=== PATIENT | male | born 1965 | race Two or more races ===

== ENCOUNTER 2019-08-04 00:44 | Inpatient (IN) | payer MEDICAID ==
[2019-08-04] VITALS (7 sets, daily range): BP systolic 142–166; BP diastolic 78–96
[~2019-08-04] VITALS: Ht 167.6 cm; Wt 85.7 kg
[~2019-08-04 00:44] MED LIST: FOLI1TAB16 PO; THIA100T74 PO
[2019-08-04] MEDS ORDERED: KETOROLAC TROMETHAMINE 15 MG/ML VIAL ONE (01:11)
[2019-08-04] MEDS ORDERED: ONDANSETRON HCL/PF 4 MG/2 ML VIAL ONE (01:11)
--- NOTE | 2019-08-04 01:15 | NUR ---
BIBSELF TO ER BED 11. AAOX4. NO RESP DISTRESS NOTED. AMBULATORY. C/O RUQ ABDOMINAL PAIN AND L CEHST PAIN. PT REPORTS PAIN HAS BEEN GOING ON FOR THE PAST WEEK 8/10 SHARP STABBING PAIN. PT ADMIT TO DRINKS BEER W/ TEQUILA LAST DRINK WAS THIS MORNING. PT'S CHEST PAIN HAS BEEN GOING ON FOR THE PAST 2 DAYS NON RADIATING. AWAITING MD FOR EVAL.
[2019-08-04 01:24] LABS: BASOPHILS % (AUTO) 0.7 % (0.0-2.0); EOSINOPHILS % (AUTO) 0.5 % (0.0-6.0); HEMATOCRIT 47 % (39-51); HEMOGLOBIN 16.4 g/dL (13.5-17.5); LYMPHOCYTES # (AUTO) 2.4 /CMM (0.8-4.8); LYMPHOCYTES % (AUTO) 40.3 % (20.0-44.0); MEAN CORPUSCULAR HGB CONC 35 g/dl (31.0-36.0); MEAN CORPUSCULAR VOLUME 91 fL (80-96); MONOCYTES # (AUTO) 0.3 /CMM (0.1-1.30); MONOCYTES % (AUTO) 5.9 % (2.0-12.0); NEUTROPHILS # (AUTO) 3.1 /CMM (1.8-8.9); NEUTROPHILS % (AUTO) 52.6 % (43.0-81.0); PLATELET COUNT (AUTO) 142 /CMM (150-450); RED BLOOD CELL COUNT(AUTO) 5.14 MIL/uL (4.5-6.0); WHITE BLOOD COUNT (AUTO) 5.9 K/uL (4.3-11.0)
[2019-08-04] MEDS ORDERED: ONDANSETRON HCL/PF 4 MG/2 ML VIAL IVP ONE (01:30)
[2019-08-04] MEDS ORDERED: KETOROLAC TROMETHAMINE INJ 30 MG/ML VIAL IV ONE (01:30)
[2019-08-04] MEDS ORDERED: IV NS 0.9% 1,000 ML BAG IV ONE (01:30)
[2019-08-04 01:31] LABS: CALCIUM, SERUM 8.1 mg/dL (8.5-10.1); CREATININE 0.9 mg/dL (0.6-1.3); POTASSIUM 3.2 mmol/L (3.5-5.1)
[2019-08-04 01:37] LABS: ALBUMIN 3.7 g/dL (3.4-5.0); BILIRUBIN,DIRECT 0.4 mg/dL (0.0-0.2); BILIRUBIN,TOTAL 1.6 mg/dL (0.2-1.0)
--- NOTE | 2019-08-04 02:59 | NUR ---
BED ASSIGNMENT 315-2 TELE
[2019-08-04] MEDS ORDERED: ACETAMINOPHEN 325 MG TABLET PO PRN (03:00)
[2019-08-04] MEDS ORDERED: IV NS 0.9% 1,000 ML IV SCH (03:00)
[2019-08-04] MEDS ORDERED: Z GUARD REMEDY 2 OZ OINT TP PRN (03:00)
[2019-08-04] MEDS ORDERED: MAGNESIUM HYDROXIDE 30 ML UDC PO PRN (03:00)
[2019-08-04] MEDS ORDERED: MAG HYDROX/AL HYDROX/SIMETH 30 ML UDC PO PRN (03:00)
[2019-08-04] MEDS ORDERED: PHARMACY ADD 1 AMP MVI TO IVF DAILY ONE BAG XX PRN (03:00)
--- NOTE | 2019-08-04 03:19 | NUR ---
report given to BELLO ESTEVEZ for MAXIMO.
--- NOTE | 2019-08-04 03:45 | NUR ---
MS ENVIRONMENTAL PROFESSIONAL NOTES RECEIVED PATIENT FROM ER VIA RNEY ACCOMPANIED BY ER STAFFS. ALERT AND ORIENTED X 3, NAURUAN SPEAKING. AMBULATORY; VERBALLY RESPONSIVE AND ABLE TO FOLLOW DIRECTIONS. BREATHING REGULAR AND UNLABORED ON ROOM AIR. LEFT AC G20 INTACT AND PATENT, FLUSHING WELL WITH NO BLEEDING OR S/S OF INFILTRATION/INFECTION SEEN. BODY ASSESSMENT DONE, NOTED WITH BILATERAL FEET DRY SKIN AND LEFT UPPER CHEST SCAR. PHOTO TAKEN, ATTACHED TO CHART. VITAL SIGNS TAKEN AND RECORDED. BELONGINGS CHECKED BY HOSE HANDLER AND ACCOUNTED BY PATIENT. STARTED ON IV NS AT 125CC/HR, TOLERATING WELL. NO COMPLAINTS OF PAIN/DISCOMFORT REPORTED OF THE TIME. CALL LIGHT IN REACH. BED LOW AND LOCKED ON SEMI FOWLERS POSITION. WILL CONTINUE TO MONITOR.
[2019-08-04] MEDS ORDERED: Folic acid 1 MG/0.2 ML VIAL ONE (05:36)
[2019-08-04] MEDS ORDERED: Thiamine 100 MG/ML VIAL ONE (05:37)
[2019-08-04] MEDS: Thiamine 100 MG in IV D5W 50 ML IV SCH (05:42)
--- NOTE | 2019-08-04 05:45 | NUR ---
MS RN NOTES IV DOSE OF THIAMINE 100MG AND FOLIC ACID 1MG TAKEN ON THE LESLIE OMNICELL BY NURSE STREET SUPERINTENDENT.
[2019-08-04] MEDS: Folic acid 1 MG in IV D5W 50 ML IV SCH (06:16)
--- NOTE | 2019-08-04 06:30 | NUR ---
MS RN CLOSING NOTES PATIENT IN BED ALERT AND ORIENTED X 3, SAO TOMEAN SPEAKING. AMBULATORY; VERBALLY RESPONSIVE AND ABLE TO FOLLOW DIRECTIONS. BREATHING REGULAR AND UNLABORED ON ROOM AIR. LEFT AC G20 INTACT AND PATENT, FLUSHING WELL WITH NO BLEEDING OR S/S OF INFILTRATION/INFECTION SEEN. NO COMPLAINTS OF PAIN/DISCOMFORT REPORTED OF THE TIME. MAINTAINED ON NOTHING BY MOUTH. CALL LIGHT IN REACH. BED LOW AND LOCKED ON SEMI FOWLERS POSITION. WILL ENDORSE TO MORNING SHIFT FOR MAXIMO.
[2019-08-04 07:34] LABS: PHOSPHORUS 3.6 mg/dL (2.5-4.9)
[2019-08-04] MEDS: ONDANSETRON HCL/PF 4 MG/2 ML VIAL IVP PRN (07:42)
--- NOTE | 2019-08-04 07:43 | NUR ---
M/S RN OPENING NOTES PATIENT RECEIVED RESTING IN BED, ALERT AND ORIENTED x3. MAORI SPEAKING. ABLE TO FOLLOW COMMANDS. NO SIGNS OF DISTRESS OR NO CURRENT COMPLAINTS OF PAIN. CURRENTLY ON ROOM AIR. PATIENT REMAINS ON NPO. IV LOCATED ON LEFT AC G20 RUNNING NS PATENT AND INTACT. SAFETY PRECAUTIONS ARE IN PLACE WITH BED IN LOWEST POSITION, BREAKS ON, AND CALL LIGHT WITHIN REACH. WILL CONTINUE TO MONITOR.
[2019-08-04] MEDS ORDERED: MVI ADULT 10ML VIAL = 1AMP 10 ML in IV NS 0.9% 1,000 ML IV PRN (08:00)
[2019-08-04] MEDS: CYANOCOBALAMIN 100 MCG TABLET PO SCH (08:40)
[2019-08-04] MEDS: PANTOPRAZOLE 40 MG TABLET.DR PO SCH ×2 (10:14→20:05)
[2019-08-04] MEDS: CHLORDIAZEPOXIDE HCL 10 MG CAPSULE PO SCH ×3 (10:15→17:20)
[2019-08-04] MEDS: LORAZEPAM INJ 2 MG/ML VIAL IV PRN ×2 (11:25→16:12)
[2019-08-04] MEDS ORDERED: POTASSIUM CHLORIDE 20 MEQ POWDER PACKET PO SCH (11:30)
--- NOTE | 2019-08-04 13:17 | NUR ---
Social service consult requested by Dr. Toussaint for alcohol abuse. Pt. is a 54 year old male who was admitted to [facility] for Pancreatitis. SW met with the pt. bedside. Pt. is South [place] speaking. MARLENE Steven assisted with translation. Pt. [address] [facility] [place] Pt's emergency contact is his daughter Cinthia Garner . Pt. stated he was binge drinking for the past 2 weeks. Pt's drink of choice is beer. Pt. did attend the [facility] alcohol rehab program in the past. Pt. declined resources and referrals to alcohol treatment programs at this time. Pt. stated, this is a wake up call for him and he is going to stop drinking after this episode. Pt denies drugs and cigarettes use. No other social service needs are requested at this time. SW is available, if needed.
[2019-08-04] MEDS: IV D5/ 0.9% NACL 1,000 ML IV PRN (16:23)
--- NOTE | 2019-08-04 17:39 | NUR ---
M/S RN CLOSING NOTES PATIENT CURRENTLY RESTING IN BED WATCHING TV, A/O x3. MOSTLY PAPUA NEW GUINEAN SPEAKING, BUT STILL ABLE TO LET NEEDS BE KNOWN. NO SIGNS OF ACUTE DISTRESS AND NO CURRENT COMPLAINTS OF PAIN. PATIENT IS AMBULATORY. IV LOCATED ON L AC #20 RUNNING D5 NS @ 125 ML/ HR. SAFETY PRECAUTIONS IN PLACE WITH BED IN LOWEST POSITION, BREAKS ON, AND CALL LIGHT WITHIN REACH. WILL ENDORSE TO ONCOMING LIP CUTTER ABOUT MAXIMO.
--- NOTE | 2019-08-04 18:12 | NUR ---
M/S DR. VEGA VISIT SEEN BY DR. VEGA PER MD. PLAN FOR BONE MARROW BIOPSY AFTER EGD. CONSENT SIGNED AND PLACED IN MEDICAL RECORDS.
--- NOTE | 2019-08-04 19:24 | NUR ---
RN OPENING NOTES RECEIVED PATIENT IN BED, AWAKE. A/O X 3. PATIENT IS TAMAZIGHT SPEAKING, ABLE TO EXPRESS NEEDS. NO SIGNS OF RESPIRATORY DISTRESS. RESPIRATIONS EVEN AND UNLABORED WITH EQUAL RISE AND FALL OF CHEST. IV SITE INTACT AND PATENT, IVF IN PLACE ORDERED, NO INFILTRATION/INFECTION NOTED. DENIES PAIN AT THIS TIME. SAFETY PRECAUTIONS IMPLEMENTED; CALL LIGHT WITHIN REACH, BED LOWEST POSITION, BED LOCKED, BILATERAL UPPER SIDE RAILS UP. WILL CONTINUE TO MONITOR.
[2019-08-04] MEDS: MORPHINE SULFATE INJ 2 MG/ML DISP.SYRIN IV PRN (20:16)
--- NOTE | 2019-08-04 22:30 | NUR ---
Met with patient, states he lives at home with his and family. He is ambulatory and independent with adl's at baseline. Patient states that recently, his walking has been unsteady and wabbly. Admits to having hx of alcohol abuse. 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 Will refer to social media executive for substance abuse treatment resources. Current dc plan is to return home, family will provide ride. Addendum: 08/04/19 at 2230 by JAROCHO LINARES RN Amended: Links added.
[2019-08-05 00:21] VITALS: BP 144/95
[2019-08-05] MEDS: MORPHINE SULFATE INJ 2 MG/ML DISP.SYRIN IV PRN ×3 (00:22→15:10)
[2019-08-05] MEDS: Thiamine 100 MG in IV D5W 50 ML IV SCH (04:00)
[2019-08-05] MEDS: IV D5/ 0.9% NACL 1,000 ML IV PRN ×2 (04:00→17:21)
[2019-08-05] MEDS: Folic acid 1 MG in IV D5W 50 ML IV SCH (05:00)
[2019-08-05 05:05] VITALS: BP 145/92
[2019-08-05] MEDS: LORAZEPAM INJ 2 MG/ML VIAL IV PRN ×2 (05:06→20:23)
[2019-08-05] MEDS: ONDANSETRON HCL/PF 4 MG/2 ML VIAL IVP PRN ×2 (05:31→17:31)
--- NOTE | 2019-08-05 06:34 | NUR ---
RN CLOSING NOTES PATIENT ASLEEP, RESTING IN BED, EASILY AROUSABLE. NO SIGNS OF RESPIRATORY DISTRESS. RESPIRATIONS EVEN AND UNLABORED WITH EQUAL RISE AND FALL OF CHEST. IV SITE REMAINS INTACT AND PATENT, IVF IN PLACE ORDERED, NO INFILTRATION/INFECTION NOTED. IVF DELAYED DUE TO PATIENT GOING TO THE RESTROOM WITH UNHOOKED IV, AND PATIENT ALSO BENDING ARM THUS STOPPING IVF AT TIMES. NO SIGNS OF FACIAL GRIMACING INDICATING PAIN/DISCOMFORT AT THIS TIME. SAFETY PRECAUTIONS IMPLEMENTED; CALL LIGHT WITHIN REACH, BED LOWEST POSITION, BED LOCKED, BILATERAL UPPER SIDE RAILS UP. WILL CONTINUE TO MONITOR AND THEN WILL ENDORSE TO DAYSHIFT NURSE FOR CONTINUITY OF CARE.
[2019-08-05 07:12] LABS: BASOPHILS % (AUTO) 0.5 % (0.0-2.0); EOSINOPHILS % (AUTO) 1.3 % (0.0-6.0); HEMATOCRIT 42 % (39-51); HEMOGLOBIN 14.8 g/dL (13.5-17.5); LYMPHOCYTES # (AUTO) 1.1 /CMM (0.8-4.8); LYMPHOCYTES % (AUTO) 24.4 % (20.0-44.0); MEAN CORPUSCULAR HGB CONC 35 g/dl (31.0-36.0); MEAN CORPUSCULAR VOLUME 92 fL (80-96); MONOCYTES # (AUTO) 0.3 /CMM (0.1-1.30); NEUTROPHILS # (AUTO) 3.2 /CMM (1.8-8.9); NEUTROPHILS % (AUTO) 67.8 % (43.0-81.0); PLATELET COUNT (AUTO) 71 /CMM (150-450); WHITE BLOOD COUNT (AUTO) 4.7 K/uL (4.3-11.0)
--- NOTE | 2019-08-05 07:15 | NUR ---
MS RN OPENING NOTES RECEIVED PT IN BED, ASLEEP. EASILY AROUSED. A/O X3-4. PALESTINIAN SPEAKING BUT CAN UNDERSTAND BELARUSIAN. PT TOLERATING RA, WITH NO ACUTE RESPIRATORY DISTRESS NOTED. PT DENIES ANY PAIN OR DISCOMFORT AT THIS TIME. PT DENIES ANY CONCERNS OR QUESTIONS WELL AT THIS MOMENT. IVF D5 NS @ A25ML/HR TO LACG20, INTACT AND FLUID INFUSING WELL. PT KEPT COMFORTABLE. CALL LIGHT KEPT WITHIN REACH. PT'S BED IN LOWEST, LOCKED POSITION WITH SR X3. WILL CONTINUE PLAN OF CARE.
[2019-08-05 07:43] LABS: CALCIUM, SERUM 7.8 mg/dL (8.5-10.1); CREATININE 0.9 mg/dL (0.6-1.3); POTASSIUM 3.4 mmol/L (3.5-5.1)
[2019-08-05 07:47] LABS: EOSINOPHILS % (MANUAL) 2 % (0-4); LYMPHOCYTES % (MANUAL) 31 % (16-48); MONOCYTES % (MANUAL) 6 % (0-11.0); NEUTROPHILS % (MANUAL) 61 (42-76)
[2019-08-05 08:00] VITALS: BP 150/97
[2019-08-05] MEDS: CYANOCOBALAMIN 100 MCG TABLET PO SCH (08:29)
[2019-08-05] MEDS: CHLORDIAZEPOXIDE HCL 10 MG CAPSULE PO SCH (08:29)
[2019-08-05] MEDS: PANTOPRAZOLE 40 MG TABLET.DR PO SCH ×2 (08:29→20:13)
[2019-08-05] MEDS ORDERED: POTASSIUM CHLORIDE 20 MEQ POWDER PACKET PO SCH (11:30)
[2019-08-05] MEDS: CHLORDIAZEPOXIDE HCL 25 MG CAPSULE PO SCH ×2 (12:54→16:30)
--- NOTE | 2019-08-05 13:47 | NUR ---
MS RN NOTES RECEIVED ORDER OF HEPARIN, CLARIFIED WITH MD/PV DUE TO LOW PLATELTS. MD AWARE HOLD DOSE IF <100. PHARMACIST/CLAUDIA MADE AWARE WELL.
[2019-08-05 16:00] VITALS: BP 141/94
--- NOTE | 2019-08-05 17:20 | NUR ---
MS RN NOTES PT COMPLAINED OF NAUSEA AND DISCOMFORT ON THE TUMMY. REQUESTED ZOFRAN. IV PRN ZOFRAN GIVEN ORDERED. PT HAS TOLERABLE PAIN AT THISMOMENT AND REFUSED TO HAVE ANY ADDITIONAL PAIN MEDICINE AT THIS TIME.
--- NOTE | 2019-08-05 18:36 | NUR ---
MS RN OPENING NOTES PT IN BED, INTERMITTENTLY DOZING OFF. EASILY AROUSED. A/O X3-4. ALBANIAN SPEAKING BUT CAN UNDERSTAND MALTESE. PT TOLERATING RA, WITH NO ACUTE RESPIRATORY DISTRESS NOTED. PT DENIES ANY PAIN OR DISCOMFORT AT THIS TIME. PT DENIES ANY CONCERNS OR QUESTIONS WELL AT THIS MOMENT. IVF D5 NS @ A25ML/HR TO LACG20, INTACT AND FLUID INFUSING WELL. PT KEPT COMFORTABLE. CALL LIGHT KEPT WITHIN REACH. PT'S BED IN LOWEST, LOCKED POSITION WITH SR X3. WILL ENDORSE TO INCOMING NIGHT NURSE FOR MAXIMO.
--- NOTE | 2019-08-05 19:25 | NUR ---
MS RN RECEIVE PT IN BED A/O X 3 AWAKE, STABLE AND NOT IN DISTRESS, NO C/O OF PAIN. SAFETY MEASURES AT ALL TIMES WILL CONTINUE TO MONITOR
[2019-08-05 20:00] VITALS: BP 143/85
[2019-08-05] MEDS: ZOLPIDEM TARTRATE 5 MG TABLET PO PRN (20:14)
[2019-08-05 20:24] VITALS: BP 143/85
[2019-08-05] MEDS ORDERED: HEPARIN SODIUM, PORCINE 5000 UNITS/1 ML VIAL SQ SCH (21:00)
--- NOTE | 2019-08-05 21:23 | NUR ---
MS RN PT CALM AT THIS TIME NO HAND TREMORS, WILL CONTINUE TO MONITOR
[2019-08-06] MEDS: IV D5/ 0.9% NACL 1,000 ML IV PRN ×2 (02:38→16:49)
[2019-08-06] MEDS: MORPHINE SULFATE INJ 2 MG/ML DISP.SYRIN IV PRN ×4 (02:41→22:15)
--- NOTE | 2019-08-06 06:13 | NUR ---
MS RN PT ASLEEP AND EASILY AWAKEN, TOLERATING R.A 98% 02 SAT. MONITORED FOR PAIN, NO C/O OF PAIN AT THIS TIME. NEEDS ATTENDED AND ANTICIPATED. KEPT CLEAN, DRY AND COMFORTABLE AT ALL TIMES. RESPIRATIONS EVEN AND UNLABORED. SAFETY MEASURES AT ALL TIMES. WILL ENDORSE NEXT SHIFT POC.
[2019-08-06 07:04] LABS: BASOPHILS % (AUTO) 0.4 % (0.0-2.0); EOSINOPHILS % (AUTO) 2.6 % (0.0-6.0); HEMATOCRIT 42 % (39-51); HEMOGLOBIN 14.7 g/dL (13.5-17.5); LYMPHOCYTES # (AUTO) 1.2 /CMM (0.8-4.8); LYMPHOCYTES % (AUTO) 27.2 % (20.0-44.0); MEAN CORPUSCULAR HGB CONC 35 g/dl (31.0-36.0); MEAN CORPUSCULAR VOLUME 92 fL (80-96); MONOCYTES # (AUTO) 0.2 /CMM (0.1-1.30); MONOCYTES % (AUTO) 4.3 % (2.0-12.0); NEUTROPHILS % (AUTO) 65.5 % (43.0-81.0); PLATELET COUNT (AUTO) 74 /CMM (150-450); RED BLOOD CELL COUNT(AUTO) 4.59 MIL/uL (4.5-6.0); WHITE BLOOD COUNT (AUTO) 4.6 K/uL (4.3-11.0)
--- NOTE | 2019-08-06 07:19 | NUR ---
MS RN NOTES RECEIVED PT IN BED, ASLEEP. EASILY AROUSED. A/O X3-4. BENGALI SPEAKING BUT CAN UNDERSTAND EMIRATI. PT TOLERATING RA, WITH NO ACUTE RESPIRATORY DISTRESS NOTED. PT DENIES ANY PAIN OR DISCOMFORT AT THIS TIME. PT DENIES ANY CONCERNS OR QUESTIONS WELL AT THIS MOMENT. IVF D5 NS @ 125ML/HR TO LACG20, INTACT AND FLUID INFUSING WELL. PT KEPT COMFORTABLE. CALL LIGHT KEPT WITHIN REACH. PT'S BED IN LOWEST, LOCKED POSITION WITH SR X3. WILL CONTINUE PLAN OF CARE.
[2019-08-06 07:29] LABS: CALCIUM, SERUM 8.1 mg/dL (8.5-10.1); POTASSIUM 3.2 mmol/L (3.5-5.1)
[2019-08-06 08:00] VITALS: BP 160/98
[2019-08-06] MEDS: PANTOPRAZOLE 40 MG TABLET.DR PO SCH ×2 (08:29→22:09)
[2019-08-06] MEDS: CYANOCOBALAMIN 100 MCG TABLET PO SCH (08:29)
[2019-08-06] MEDS: THIAMINE HCL 100 MG TABLET PO SCH (08:30)
[2019-08-06] MEDS: FOLIC ACID 1 MG TABLET PO SCH (08:30)
[2019-08-06] MEDS: CHLORDIAZEPOXIDE HCL 25 MG CAPSULE PO SCH ×3 (08:30→16:42)
[2019-08-06 08:57] LABS: EOSINOPHILS % (MANUAL) 2 % (0-4); LYMPHOCYTES % (MANUAL) 32 % (16-48); MONOCYTES % (MANUAL) 3 % (0-11.0); NEUTROPHILS % (MANUAL) 63 (42-76)
[2019-08-06] MEDS ORDERED: POTASSIUM CHLORIDE 20 MEQ TAB.PRT.SR PO ONE (11:30)
[2019-08-06 16:00] VITALS: BP 135/75
--- NOTE | 2019-08-06 18:30 | NUR ---
MS RN CLOSING NOTES PT IN BED, INTERMITTENTLY DOZING OFF. EASILY AROUSED. A/O X3-4. SERBIAN SPEAKING BUT CAN UNDERSTAND DIVEHI. PT TOLERATING RA, WITH NO ACUTE RESPIRATORY DISTRESS NOTED. PT DENIES ANY PAIN OR DISCOMFORT AT THIS TIME. PT DENIES ANY CONCERNS OR QUESTIONS WELL AT THIS MOMENT. IVF D5 NS @ 125ML/HR TO LACG20, INTACT AND FLUID INFUSING WELL. PT KEPT COMFORTABLE. ALL NEEDS AND CARE ATTENDED AND PROVIDED. CALL LIGHT KEPT WITHIN REACH. PT'S BED IN LOWEST, LOCKED POSITION WITH SR X3. WILL ENDORSE TO INCOMING NIGHT NURSE FOR MAXIMO.
[2019-08-06 20:00] VITALS: BP 154/84
--- NOTE | 2019-08-06 20:12 | NUR ---
MS/RN RECEIVE PATIENT AWAKE, ALERT, ORIENTED, COMFORTABLE, NO DISTRESS NOTED, CALL LIGHT IN REACH. WILL MONITOR.
[2019-08-06] MEDS: ONDANSETRON HCL/PF 4 MG/2 ML VIAL IVP PRN (22:14)
--- NOTE | 2019-08-06 22:50 | NUR ---
MS RN OPENING NOTE RECEIVED A TRANSFER OF CARE FROM MILES ESTEVEZ. PATIENT IN BED. A/O X4. TOLERATING ROOM AIR. RESPIRATIONS ARE EVEN AND UNLABORED. NO S/S SOB NOTED. DENIES PAIN AT THIS TIME. IN NO APPARENT DISTRESS. IV ACCESS IN LAC #20, OCCLUDED, WILL INSERT NEW IV LINE. REASSESSED MORPHINE AND ZOFRAN. PATIENT STATED NO PAIN AND NO NAUSEA OR VOMITING. BED IS LOW AND LOCKED, HOB IN HIGH FOWLERS, SIDE RAILS UP X2. CALL LIGHT WITHIN REACH. WILL CONTINUE TO MONITOR.
--- NOTE | 2019-08-06 22:57 | NUR ---
MS/RN NO CHANGE IN CONDITION, ENDORSED TO NEXT RN FOR CONTINUITY OF CARE.
--- NOTE | 2019-08-06 23:50 | NUR ---
MS RN NOTE INSERT IV RAC #20 RUNNING D5NS@125ML/HR.
[2019-08-07] MEDS: ZOLPIDEM TARTRATE 5 MG TABLET PO PRN (00:14)
[2019-08-07] MEDS: HYDROCODONE/APAP 5/325MG 1 EACH TABLET PO PRN ×3 (00:15→21:50)
--- NOTE | 2019-08-07 00:15 | NUR ---
MS RN NOTE ADMINISTERED PRN AMBIEN 5MG PER PATIENT REQUEST FOR SLEEP. ALSO ADMINISTERED PRN NORCO 5/325 FOR PAIN 9/10 FOR BACK PAIN. WILL CONTINUE TO MONITOR.
[2019-08-07] MEDS: IV D5/ 0.9% NACL 1,000 ML IV PRN ×3 (02:03→21:51)
--- NOTE | 2019-08-07 06:24 | NUR ---
MS RN CLOSING NOTE PATIENT IN BED. A/O X4. REMAINS TOLERATING ROOM AIR. RESPIRATIONS ARE EVEN AND UNLABORED. NO SOB NOTED. MANAGED PAIN WITH MORPHINE AND NORCO. NO DISTRESS NOTED. IV ACCESS IN RAC #20 RUNNING D5NS@125ML/HR. BED REMAINS LOW AND LOCKED, HOB REMAINS IN HIGH FOWLERS, SIDE RAILS UP X2. CALL LIGHT WITHIN REACH. WILL ENDORSE TO NEXT SHIFT.
[2019-08-07 07:20] LABS: BASOPHILS % (AUTO) 0.3 % (0.0-2.0); EOSINOPHILS % (AUTO) 2.7 % (0.0-6.0); HEMATOCRIT 42 % (39-51); HEMOGLOBIN 14.3 g/dL (13.5-17.5); LYMPHOCYTES # (AUTO) 1.2 /CMM (0.8-4.8); LYMPHOCYTES % (AUTO) 29.1 % (20.0-44.0); MEAN CORPUSCULAR HGB CONC 34 g/dl (31.0-36.0); MEAN CORPUSCULAR VOLUME 94 fL (80-96); MONOCYTES # (AUTO) 0.2 /CMM (0.1-1.30); MONOCYTES % (AUTO) 5.9 % (2.0-12.0); NEUTROPHILS # (AUTO) 2.6 /CMM (1.8-8.9); PLATELET COUNT (AUTO) 81 /CMM (150-450); RED BLOOD CELL COUNT(AUTO) 4.46 MIL/uL (4.5-6.0); WHITE BLOOD COUNT (AUTO) 4.1 K/uL (4.3-11.0)
--- NOTE | 2019-08-07 07:30 | NUR ---
RN MS NOTES PT AWAKE, ALERT AND ORIENTED, NO COMPLAINT OF PAIN AT THIS TIME, RESPIRATIONS NORMAL, CALL LIGHT WITHIN REACH, IV FLUIDS INFUSING WELL, TOLERATING CURRENT DIET, ABLE TO AMBULATE TO THE BATHROOM WITH STEADY GAIT, NEEDS ATTENDED.
[2019-08-07 07:32] LABS: CALCIUM, SERUM 8.2 mg/dL (8.5-10.1); POTASSIUM 3.7 mmol/L (3.5-5.1)
[2019-08-07] MEDS: CHLORDIAZEPOXIDE HCL 25 MG CAPSULE PO SCH ×3 (08:05→16:35)
[2019-08-07] MEDS: CYANOCOBALAMIN 100 MCG TABLET PO SCH (08:05)
[2019-08-07] MEDS: FOLIC ACID 1 MG TABLET PO SCH (08:05)
[2019-08-07] MEDS: THIAMINE HCL 100 MG TABLET PO SCH (08:05)
[2019-08-07] MEDS: PANTOPRAZOLE 40 MG TABLET.DR PO SCH ×2 (08:05→21:41)
[2019-08-07] MEDS: METFORMIN XR 500 MG TAB.SR.24H PO SCH (08:05)
[2019-08-07 08:11] VITALS: BP 134/93
[2019-08-07 08:31] LABS: BAND % (MANUAL) 1 % (0.0-5.0); EOSINOPHILS % (MANUAL) 1 % (0-4); LYMPHOCYTES % (MANUAL) 31 % (16-48); MONOCYTES % (MANUAL) 4 % (0-11.0); NEUTROPHILS % (MANUAL) 63 (42-76)
[2019-08-07] MEDS: MORPHINE SULFATE INJ 2 MG/ML DISP.SYRIN IV PRN (09:35)
--- NOTE | 2019-08-07 12:03 | NUR ---
RN MS NOTES PT IN BED, EATING LUNCH, NO COMPLAINT AT THIS TIME, SEEN BY DR. DIAZ, PLAN OF CARE DISCUSSED WITH PT, VERBALIZED UNDERSTANDING.
[2019-08-07 16:10] VITALS: BP 133/74
--- NOTE | 2019-08-07 18:17 | NUR ---
RN MS NOTES PT IN BED, RESTING, PM MEDS GIVEN ORDERED, TOLERATES REGULAR DIET, CALL LIGHT WITHIN REACH, IV FLUIDS INFUSING WELL, ALL NEEDS ATTENDED.
--- NOTE | 2019-08-07 19:25 | NUR ---
MS RN PM OPENING NOTE BEDSIDE REPORT RECIEVED FROM MICH ESTEVEZ. PATIENT IN BED. A/O X4. TOLERATING ROOM AIR. RESPIRATIONS ARE EVEN AND UNLABORED. IN NO APPARENT DISTRESS. IV ACCESS IN RAC #20 RUNNING D5NS@125ML/HR. BED LOW AND LOCKED, HOB IN HIGH FOWLERS, SIDE RAILS UP X2. CALL LIGHT WITHIN REACH. REVIEWED POC TO CONTINUE HYDRATION MANAGE PAIN IT ARISES AND TO MONITOR FOR S/S OF ETOH WITHDRAWL. PT HAS NOT VISIBLE TREMORS OR VISIBLE PERSPERIATION. SPEAKING NORMALLY. PT VERBALIZED UNDERSTANDING BED DOWN LOCKED CALL LIGHT IN REACH. VERBALZIED UNDERSTANDING TO CALL FOR ASSISTANCE NEEDED.
[2019-08-07 20:00] VITALS: BP 139/81
[2019-08-08] MEDS: MORPHINE SULFATE INJ 2 MG/ML DISP.SYRIN IV PRN ×2 (00:29→04:49)
[2019-08-08] MEDS: ZOLPIDEM TARTRATE 5 MG TABLET PO PRN (01:21)
--- NOTE | 2019-08-08 01:22 | NUR ---
sleeping pill request patient requested leeping pill. ambien 5mg administered as ordered.
[2019-08-08] MEDS: IV D5/ 0.9% NACL 1,000 ML IV PRN (04:49)
--- NOTE | 2019-08-08 06:34 | NUR ---
MS RN PM CLOSING NOTE PATIENT IN BED. SEEN WITH EYES CLOSED. TOLERATING ROOM AIR. RESPIRATIONS ARE EVEN AND UNLABORED AT RATE OF 16. IN NO APPARENT DISTRESS. IV ACCESS IN RAC #20 RUNNING D5NS@125ML/HR. BED LOW AND LOCKED, HOB IN SEMI FOWLERS, SIDE RAILS UP X2. CALL LIGHT WITHIN REACH. PT DID NOT HAVE ANY VISIBLE TREMORS, VISIBLE PERSPERIATION OR CHANGE IN MENTATION THROUGHOUT THE NIGHT. CALL LIGHT IN REACH. SAFETY MEASURES IN PLACE.
[2019-08-08 07:10] LABS: CHOLESTEROL 152 mg/dL (<200); HDL CHOLESTEROL 24 mg/dL (40-60); LDL 101 mg/dL (0-99); TRIGLYCERIDES 135 mg/dL (30-150)
--- NOTE | 2019-08-08 07:42 | NUR ---
MS RN OPENING NOTES RECEIVED PT AWAKE IN BED IN NO ACUTE SIGNS OF DISTRESS. A/O X4. PERSIAN SPEAKING AND UNDERSTANDS LITTLE FRISIAN, DENIES ANY PAIN OR DISCOMFORT AT THIS TIME. ON ROOM AIR, BREATHING EVEN AND UNLABORED. IVF OF D5 NS @ 125ML/HR INFUSING TO RAC G#20, NO S/S OF INFILTRATIONS NOTED. CALL LIGHT WITHIN REACH. BED IN LOWEST LOCKED POSITION WITH SR X2. WILL CONTINUE TO MONITOR PT ACCORDINGLY.
[2019-08-08 08:05] LABS: LIPASE 2067 U/L (73-393)
[2019-08-08 08:08] VITALS: BP 139/79
[2019-08-08] MEDS: CYANOCOBALAMIN 100 MCG TABLET PO SCH (08:40)
[2019-08-08] MEDS: THIAMINE HCL 100 MG TABLET PO SCH (08:40)
[2019-08-08] MEDS: CHLORDIAZEPOXIDE HCL 25 MG CAPSULE PO SCH ×3 (08:40→16:42)
[2019-08-08] MEDS: METFORMIN XR 500 MG TAB.SR.24H PO SCH (08:40)
[2019-08-08] MEDS: PANTOPRAZOLE 40 MG TABLET.DR PO SCH (08:40)
[2019-08-08] MEDS: FOLIC ACID 1 MG TABLET PO SCH (08:40)
[2019-08-08] MEDS ORDERED: METF500T3 PO (11:12)
[2019-08-08] MEDS ORDERED: CHLO25CA22 PO (11:12)
[2019-08-08 15:36] VITALS: BP 150/79
[2019-08-08] MEDS ORDERED: INFLUENZA VACCINE 2019-20 0.5 ML DISP.SYRIN IM ONE (17:30)
--- NOTE | 2019-08-08 17:46 | NUR ---
RN NOTES FLU SHOT ADMINISTERED TO RIGHT DELTOID PER PT REQUEST.
--- NOTE | 2019-08-08 18:05 | NUR ---
RN DISCHARGED NOTES PT DISCHARGED HOME IN STABLE CONDITION. A/O X4 . EQUATORIAL GUINEAN SPEAKING. V/S TAKEN, WNL AND RECORDED. SKIN ISSUES TAKEN AND FILED IN CHART. ALL BELONGINGS ACCOUNTED FOR AND SIGNED FORM. IV ACCESS ON RAC REMOVED WITH NO BLEEDING NOTED, DRY DRESSING APPLIED AND TAPED. NAME ARMBAND REMOVED. HEALTH TEACHINGS/DISCHARGE INSTRUCTIONS GIVEN TO PT AND VIA ORE PUNCHER STAFF, BOTH VERBALIZED UNDERSTANDING. PT LEFT UNIT AMBULATORY @ 1800 ACCOMPANIED BY . MD AND CHARGE NURSE AWARE OF DISCHARGE.
== END 2019-08-08 18:00 | disposition home or self-care (01) | DRG 282 ==
LOC: ER 00:49 → MED 03:00
PROVIDERS: ADMIT Hospitalist; ATTEND Hospitalist
DX: K85.90 Acute pancreatitis without necrosis or infection, unspecified (principal); K65.9 Peritonitis, unspecified; F10.10 Alcohol abuse, uncomplicated; Y90.7 Blood alcohol level of 200-239 mg/100 ml; R74.0 Nonspecific elevation of levels of transaminase and lactic acid dehydrogenase [LDH]; E78.1 Pure hyperglyceridemia; E11.9 Type 2 diabetes mellitus without complications; K42.9 Umbilical hernia without obstruction or gangrene; E66.9 Obesity, unspecified; Z68.30 Body mass index [BMI] 30.0-30.9, adult
CPT/HCPCS: 36415; 76705-TC; 80048-TC; 80061-TC; 80076-TC; 80305; 83690-TC; 83735-TC; 84100-TC; 85025-TC; 87081-TC; G0378; G0480; J1885; J2060; J2270; J2405; J3411; J3490; J7030; J7042; J7060; Q2036